=== PATIENT | female | born 1945 | race Caucasian/White ===

== ENCOUNTER 2018-07-01 01:03 | Emergency (ER) | payer MEDICARE, OTHER ==
[~2018-07-01] VITALS: Ht 170.2 cm; Wt 80.1 kg
[2018-07-01] MEDS ORDERED: ZOCOR20 MG (01:11)
[2018-07-01] MEDS ORDERED: AVAPRO300 MG (01:12)
[2018-07-01] MEDS ORDERED: CYMBALTA30 MG (01:12)
[2018-07-01] MEDS ORDERED: CHLORTHALIDONE25 MG (01:12)
[2018-07-01] MEDS ORDERED: CARVEDILOL12.5 MG (01:12)
[2018-07-01] MEDS ORDERED: SYNTHROID112 MC1 (01:12)
[2018-07-01 01:33] LABS: ABSOLUTE EOSINOPHILS 0.1 thou/uL (0.0-0.7); ABSOLUTE LYMPHOCYTES 2.7 thou/uL (0.8-5.3); ABSOLUTE MONOCYTES 0.8 thou/uL (0.0-1.2); ABSOLUTE NEUTROPHILS 3.6 thou/uL (1.6-8.1); BASOPHILS 0.5 %; EOSINOPHILS 1.8 %; HEMATOCRIT 40.7 % (37.0-47.0); HEMOGLOBIN 13.8 gm/dL (12.0-15.0); LYMPHOCYTES 37.4 %; MCH 29.2 pg (26.0-34.0); MCHC 33.9 g/dL (28.0-37.0); MCV 86.3 fL (80.0-100.0); MONOCYTES 10.9 %; MPV 7.7 fl. (7.2-11.1); NUCLEATED RBCS 0 /100WBC; PLATELET COUNT* 289 thou/uL (150-400); POLYS 49.4 %; RBC 4.72 mil/uL (4.20-5.00); RDW-CV 13.3 % (10.5-14.5); WBC 7.3 thou/uL (4.0-11.0)
[2018-07-01 01:34] LABS: PROTIME 9.9 Seconds (9.20-11.50)
[2018-07-01 01:40] LABS: ALBUMIN 3.5 g/dL (3.4-5.0); CALCIUM 8.8 mg/dL (8.5-10.1); TOTAL BILIRUBIN 0.3 mg/dL (<0.1-1.0); TOTAL PROTEIN 6.7 g/dL (6.4-8.2)
[2018-07-01 03:16] LABS: URINE BILIRUBIN NEGATIVE (Negative); URINE BLOOD NEGATIVE (Negative); URINE CLARITY CLEAR; URINE COLOR YELLOW; URINE GLUCOSE-RANDOM NEGATIVE (Negative); URINE KETONES NEGATIVE (Negative); URINE LEUKOCYTES-REFLEX NEGATIVE (Negative); URINE NITRITE-REFLEX NEGATIVE (Negative); URINE PROTEIN NEGATIVE (Negative); URINE UROBILINOGEN 0.2 E.U./dl (0.2-1.0)
[2018-07-01 03:42] VITALS: BP 162/80
--- NOTE | 2018-07-01 16:07 | EKG ---
[place] [address] ELECTROCARDIOGRAM REPORT Name: CELESOWMYA MARITA [facility]ITAL[facility] [id number] Admission: 07/01/18 Attend Phys: Discharge: 07/01/18 Date of : 45 Report #: [id number] THIS REPORT FOR: //name// [facility] ED Test Date: 2018-07-01 Test Time: 01:11:05 Pat Name: SOWMYA OAKLEY Department: Room: Gender: F Tailer Out: TORSTEN : 1945 Requested By: Cathy Nielson Order Number: [id number] MD: Juan Hernández Measurements Intervals [place] Rate: 62 P: -2 MT: 158 QRS: -19 QRSD: 91 T: 52 QT: 441 QTc: 448 Interpretive Statements Sinus rhythm Borderline left axis deviation No previous ECG available for comparison Electronically Signed On 07-01-2018 16:07:19 [employer] by Juan Hernández [email or web address] <ELECTRONICALLY SIGNED> By: Juan Hernández MD, [facility] 07/01/18 [id number] Juan Hernández MD, FACC /EPI
== END 2018-07-01 03:42 | disposition home or self-care (01) ==
LOC: M.ERS 01:03
PROVIDERS: Emergency Medicine
DX: I16.0 Hypertensive urgency (principal); E78.5 Hyperlipidemia, unspecified; Z90.710 Acquired absence of both cervix and uterus; Z88.2 Allergy status to sulfonamides

== ENCOUNTER 2018-11-14 21:09 | Emergency (ER) | payer MEDICARE, OTHER ==
[~2018-11-14] VITALS: Ht 167.6 cm; Wt 74.8 kg
[~2018-11-14 21:09] MED LIST: AVAPRO300 MG; CARVEDILOL12.5 MG; CHLORTHALIDONE25 MG; CYMBALTA30 MG; SYNTHROID112 MC1; ZOCOR20 MG
[2018-11-15] MEDS ORDERED: MOBIC15 MG PO (00:26)
[2018-11-15 00:39] VITALS: BP 162/83
== END 2018-11-15 00:39 | disposition home or self-care (01) ==
LOC: M.ERS 21:09
DX: M25.561 Pain in right knee (principal); I10 Essential (primary) hypertension; E78.5 Hyperlipidemia, unspecified; Z90.710 Acquired absence of both cervix and uterus; Z88.8 Allergy status to other drugs, medicaments and biological substances